=== PATIENT | male | born 2000 | race Caucasian/White ===

== ENCOUNTER 2018-02-22 01:46 | Emergency (ER) | payer MEDICAID ==
[~2018-02-22] VITALS: Ht 185.4 cm; Wt 63.5 kg
[~2018-02-22 01:46] MED LIST: ALBU.083IS; ALBU90OI61 INH; AMOCLA500 PO; AMOX500 PO; AMPDEX5 PO; CODACE30 PO; DIPH50 PO; FLUT110OIA IH; FLUT44OIA; HYDACE5 PO; MEDICAL MARIJUANA; MONT4; MONT5TCH PO; ONDA4 PO; RXCODACET PO; Ventolin Soln3 ML INH
[2018-02-22 04:02] LABS: BASOPHILS ABSOLUTE AUTO 0.03 K/mm3 (0.00-0.23); BASOPHILS PERCENT AUTO 0 % (0-2); EOSINOPHILS PERCENT AUTO 0 % (0-6); Hematocrit 45.3 % (37.0-53.0); IMMATURE GRAN ABSOLUTE AUTO 0.09 K/mm3 (0.00-0.10); IMMATURE GRAN PERCENT AUTO 1 % (0-1); LYMPHOCYTES ABSOLUTE AUTO 1.08 K/mm3 (0.84-5.20); LYMPHOCYTES PERCENT AUTO 6 % (21-46); MONOCYTES ABSOLUTE AUTO 1.38 K/mm3 (0.16-1.47); MONOCYTES PERCENT AUTO 7 % (4-13); Mean Corpuscular HGB 31.1 pg (26.0-34.0); Mean Corpuscular HGB Conc 35.3 g/dL (31.5-36.5); Mean Corpuscular Volume 88 fL (80-100); Mean Platelet Volume 9.5 fL (9.1-12.4); NEUTROPHILS ABSOLUTE AUTO 16.07 K/mm3 (1.96-9.15); NEUTROPHILS PERCENT AUTO 86 % (41-73); Platelet Count 200 K/mm3 (150-400); RDW Coefficient Variation 12.8 % (11.7-14.2); RDW Standard Deviation 41.6 fL (35.1-46.3); Red Blood Cell Count 5.15 M/mm3 (4.30-5.90); White Blood Cell Count 18.65 K/mm3 (4.00-11.30)
[2018-02-22 04:21] LABS: Bun/Creatinine Ratio 24.7 (12.0-20.0); Calcium, Blood 9.2 mg/dL (8.5-10.1); Creatinine, Blood 1.62 mg/dL (0.60-1.20); Potassium, Blood 3.9 mmol/L (3.5-5.5)
[2018-02-22 04:42] LABS: Creatine Kinase MB 5.5 ng/mL (0.0-3.6); Creatine Kinase MB Index 1.1 (0.0-4.0)
== END 2018-02-22 05:57 | disposition home or self-care (01) ==
LOC: ER 01:46
PROVIDERS: Emergency Medicine
DX: F15.10 Other stimulant abuse, uncomplicated (principal); M62.82 Rhabdomyolysis; J45.909 Unspecified asthma, uncomplicated; F90.9 Attention-deficit hyperactivity disorder, unspecified type
CPT/HCPCS: 36415; 80048; 82550; 82553; 85025; 93005; 93010; 96360; 99284-25; J7030

== ENCOUNTER 2020-04-16 06:04 | Emergency (ER) | payer OTHER | END 2020-04-16 06:34 | disposition home or self-care (01) | LOC: ER 06:04 | DX: H72.92 Unspecified perforation of tympanic membrane, left ear (principal); H60.92 Unspecified otitis externa, left ear ==

== ENCOUNTER 2021-11-21 05:11 | Emergency (ER) | payer BC ==
[~2021-11-21] VITALS: Ht 182.9 cm; Wt 74.8 kg
[~2021-11-21 05:11] MED LIST changes: +Cipro500 MG PO; +IBUP600 PO
[2021-11-21 05:39] LABS: BASOPHILS ABSOLUTE AUTO 0.04 K/mm3 (0.00-0.23); BASOPHILS PERCENT AUTO 0 % (0-2); EOSINOPHILS PERCENT AUTO 0 % (0-6); Hematocrit 45.7 % (37.0-53.0); Hemoglobin 15.4 g/dL (13.5-17.5); IMMATURE GRAN ABSOLUTE AUTO 0.03 K/mm3 (0.00-0.10); IMMATURE GRAN PERCENT AUTO 0 % (0-1); LYMPHOCYTES ABSOLUTE AUTO 1.31 K/mm3 (0.84-5.20); LYMPHOCYTES PERCENT AUTO 12 % (21-46); MONOCYTES ABSOLUTE AUTO 0.96 K/mm3 (0.16-1.47); MONOCYTES PERCENT AUTO 9 % (4-13); Mean Corpuscular HGB 30.4 pg (26.0-34.0); Mean Corpuscular HGB Conc 33.7 g/dL (31.5-36.5); Mean Corpuscular Volume 90 fL (80-100); Mean Platelet Volume 9.8 fL (9.1-12.4); NEUTROPHILS PERCENT AUTO 79 % (41-73); Platelet Count 220 K/mm3 (150-400); RDW Coefficient Variation 13.1 % (11.7-14.2); RDW Standard Deviation 42.9 fL (35.1-46.3); Red Blood Cell Count 5.07 M/mm3 (4.30-5.90); White Blood Cell Count 10.94 K/mm3 (4.00-11.30)
[2021-11-21 05:53] LABS: Alanine Aminotransfer (ALT/SGP 25 U/L (12-78); Albumin, Blood 4.4 g/dL (3.4-5.0); Albumin/Globulin Ratio 1.1 (0.8-1.8); Alk Phos 84 U/L (50-136); Anion Gap 12 mmol/L (6-16); Aspartate Aminotrans (AST/SGOT 21 U/L (12-37); Bilirubin, Total 1.6 mg/dL (0.1-1.0); Blood Urea Nitrogen 16 mg/dL (8-24); Bun/Creatinine Ratio 21.6 (12.0-20.0); CO2, Blood 23 mmol/L (21-32); Calcium, Blood 9.3 mg/dL (8.5-10.1); Chloride, Blood 102 mmol/L (98-108); Creatinine, Blood 0.74 mg/dL (0.60-1.20); Globulin, Blood 3.9 g/dL (2.2-4.0); Glomerular Filtration Rate >60 (60-); Glucose, Blood 85 mg/dL (70-99); Potassium, Blood 3.7 mmol/L (3.5-5.5); Sodium, Blood 137 mmol/L (136-145); Total Protein, Blood 8.3 g/dL (6.4-8.2)
== END 2021-11-21 05:55 | disposition left against medical advice (07) ==
LOC: ER 05:11
PROVIDERS: Student in an Organized Health Care Education/Training Program
DX: R41.82 Altered mental status, unspecified (principal); Z53.21 Procedure and treatment not carried out due to patient leaving prior to being seen by health care provider
CPT/HCPCS: 36415; 80053; 85025; 93005; 93010

== ENCOUNTER 2022-04-20 21:03 | Emergency (ER) | payer BC ==
[~2022-04-20] VITALS: Ht 182.9 cm; Wt 72.6 kg
== END 2022-04-21 01:55 | disposition left against medical advice (07) ==
LOC: ER 21:03
DX: R10.9 Unspecified abdominal pain (principal); Z53.21 Procedure and treatment not carried out due to patient leaving prior to being seen by health care provider
CPT/HCPCS: 99281